=== PATIENT | female | born 1965 | race Caucasian/White ===

== ENCOUNTER 2016-12-02 10:20 | Day surgery (SDC) | payer MEDICAID, OTHER ==
[~2016-12-02 10:20] MED LIST: Lactated Ringers 1,000 ML IV SCH
[2016-12-02] MEDS ORDERED: Propofol 200 MG/20 ML SDV ONE ×2 (12:31→12:44)
[2016-12-02] MEDS ORDERED: fentaNYL 100 MCG/2 ML SDV ONE (12:31)
[2016-12-02 13:09] VITALS: BP 146/78
--- NOTE | 2016-12-02 14:44 | OR ---
PREOPERATIVE DIAGNOSIS: Positive family history of colon cancer-mother. POSTOPERATIVE DIAGNOSIS: High sigmoid polyp 40 cm, removed. PROCEDURE PROPOSED: Total flexible colonoscopy. PROCEDURE DONE: Total flexible colonoscopy with hot snare polypectomy. INDICATION: This is a 51-year-old female, who comes in for her first colonoscopic exam. She has a family history of mother with colon cancer and she was found to have a positive Fit test. TECHNIQUE: The patient was brought to the endoscopy suite, placed in left lateral decubitus position. She was sedated with propofol per [employer]. The flexible video colonoscope was then passed transanally and under visualization was advanced to the cecum. Examination revealed a normal ascending, transverse, and descending colon. In the descending proximal sigmoid region, there was a small polyp removed by hot snare technique and retrieved with suction and submitted for pathologic examination. The remainder of the rectosigmoid was normal. The scope was then withdrawn. The patient tolerated procedure well. IMPRESSION: 1. Polyp at 40 cm, removed. 2. Family history of colon cancer-mother. PLAN: She will be sent a letter with Pathology report. I felt that she should have exams every 5 years hereafter. SCM: 12/02/2016 12:55:58 MODL: 12/02/2016 14:33:02 /[id number]
--- NOTE | 2016-12-21 09:47 | LETTER ---
12/16/2016 RE: FRANCIE SHELLEY : 1965 Dear Francie, The polyp removed from your colon was a benign tubular adenoma. This is considered a precancerous type polyp and there were no worrisome changes within your polyps. I do feel that you should continue to have colonoscopies every 5 years hereafter to make sure you are not forming any new polyps. If you have any further question regarding this, feel free to call. Respectfully,
== END 2016-12-02 15:10 | disposition home or self-care (01) ==
LOC: VM.SDS 10:20
PROVIDERS: ATTEND Surgery
DX: D12.5 Benign neoplasm of sigmoid colon (principal); R73.9 Hyperglycemia, unspecified; I10 Essential (primary) hypertension; F41.0 Panic disorder [episodic paroxysmal anxiety]; F10.10 Alcohol abuse, uncomplicated; M18.0 Bilateral primary osteoarthritis of first carpometacarpal joints; F17.210 Nicotine dependence, cigarettes, uncomplicated; Z80.0 Family history of malignant neoplasm of digestive organs; Z82.49 Family history of ischemic heart disease and other diseases of the circulatory system; Z98.890 Other specified postprocedural states; Z88.8 Allergy status to other drugs, medicaments and biological substances; Z79.899 Other long term (current) drug therapy
CPT/HCPCS: 45385; J2704; J3010; J7120

== ENCOUNTER 2022-02-26 08:01 | Day surgery (SDC) | payer OTHER ==
[2022-02-26] MEDS ORDERED: Propofol 200 MG/20 ML SDV ONE (09:59)
[2022-02-26] MEDS ORDERED: Midazolam 1 MG/ML 2 ML SDV ONE (09:59)
[2022-02-26] MEDS ORDERED: fentaNYL 100 MCG/2 ML SDV ONE (09:59)
[2022-02-26 10:37] VITALS: PULSE 76
[2022-02-26 11:12] VITALS: BP 120/64
== END 2022-02-26 11:35 | disposition home or self-care (01) ==
LOC: VM.SDS 08:01
PROVIDERS: ATTEND Family Medicine
DX: Z12.11 Encounter for screening for malignant neoplasm of colon (principal); D12.0 Benign neoplasm of cecum; D12.3 Benign neoplasm of transverse colon; I10 Essential (primary) hypertension; R73.9 Hyperglycemia, unspecified; E78.00 Pure hypercholesterolemia, unspecified; F17.210 Nicotine dependence, cigarettes, uncomplicated; Z80.0 Family history of malignant neoplasm of digestive organs; Z86.010 Personal history of colon polyps; Z98.890 Other specified postprocedural states; Z79.899 Other long term (current) drug therapy; Z88.8 Allergy status to other drugs, medicaments and biological substances
CPT/HCPCS: 00811; 45380; J2250; J2704; J3010; J7120